=== PATIENT | female | born 1955 | race Two or more races ===

== ENCOUNTER 2020-04-10 23:31 | Emergency (ER) | payer MEDICARE ==
[~2020-04-10] VITALS: Ht 152.4 cm; Wt 77.3 kg
[2020-04-11 01:46] LABS: BASO # 0.1 x10^3/uL (0.0-0.2); BASO % 1 % (0-3); EOS % 0 % (0-3); HEMATOCRIT 21.9 % (36.0-47.0); LYMPH # 0.8 x10^3/uL (1.0-4.8); LYMPH % 6 % (24-48); MEAN CORPUSCULAR HEMOGLOBIN 30 pg (25-35); MEAN CORPUSCULAR HGB CONC 31 g/dL (31-37); MEAN CORPUSCULAR VOLUME 97 fL (79-100); MONO # 0.7 x10^3/uL (0.0-1.1); MONO % 6 % (0-9); NEUT # 11.2 x10^3uL (1.8-7.7); NEUT % 88 % (31-73); PLATELET COUNT 322 x10^3/uL (140-400); RED BLOOD COUNT 2.26 x10^6/uL (3.50-5.40); RED CELL DISTRIBUTION WIDTH 30.7 % (11.5-14.5); WHITE BLOOD COUNT 12.7 x10^3/uL (4.0-11.0)
[2020-04-11 01:49] LABS: CALCIUM 8.3 mg/dL (8.5-10.1); CREATININE 0.8 mg/dL (0.6-1.0); GFR 71.8; POTASSIUM 3.7 mmol/L (3.5-5.1)
[2020-04-11 01:54] LABS: HEMOGLOBIN 6.7 g/dL (12.0-15.5)
[2020-04-11 01:55] LABS: ALBUMIN 2.8 g/dL (3.4-5.0); ALBUMIN/GLOBULIN RATIO 0.8 (1.0-1.7); TOTAL BILIRUBIN 0.1 mg/dL (0.2-1.0); TOTAL PROTEIN 6.5 g/dL (6.4-8.2)
[2020-04-11 02:03] LABS: ANISOCYTOSIS MARKED; MICROCYTOSIS SLIGHT; PLT ESTIMATE ADEQUATE (ADEQUATE)
[2020-04-11] MEDS ORDERED: ALBUTEROL SULFATE 8GM INHALER. INH SCH (03:15)
--- NOTE | 2020-04-11 03:15 | PHYS DOC ---
Past History Past Medical History: Anemia, Anxiety, Constipation, Depression, GERD, High Cholesterol, P.U.D, Other Additional Past Medical Histor: dysphagia,diaphrag hernia,diverticulosis, phlebitis Alcohol Use: None Adult General Chief Complaint Chief Complaint: NAUSEA/VOMITING/[facility] HPI Patient is 65-year-old female who presents to the emergency room after vomiting blood. Patient had an episode of hematemesis last Wednesday and went to [facility] for this. She was admitted and had an EGD done where she had cauterization of 4 ulcers. She is a Sabianist and did not receive blood due to this. She did receive iron and her hemoglobin improved and she was able to go home on Wednesday. She has been doing well since then. Today she got out of bed because she felt like she needed to use the bathroom. She does have a bowel movement but is unsure what color it was. She had been vomited a large amount of bright red clotted blood. She denies any further vomiting. She is feeling weak and dizzy. Review of Systems Review of Systems Complete ROS is negative unless otherwise documented in HPI Current Medications Current Medications Current Medications Medications (Trade) Dose Ordered Sig/Jose Start Time Stop Time Status Last Admin Dose Admin Albuterol Sulfate (Ventolin Hfa Inhaler) 2 puff QIDPRN 04/11/20 03:15 UNV Allergies Allergies Allergies Coded Allergies Type Severity Reaction Last Updated Verified codeine Adverse Reaction Intermediate nausea-severe 04/11/20 Yes Physical Exam Physical Exam General: Awake, alert, NAD. Well Nourished, well hydrated. Cooperative HEENT: Atraumatic, EOMI, PERRL, airway patent, moist oral mucosa Neck: Supple, trachea midline Respiratory: CTA bilaterally, normal effort, no wheezing/crackles CV: RRR, no murmur, cap refill <2 GI: Soft, nondistended, nontender, no masses MSK: No obvious deformities Skin: Warm, dry, intact Neuro: A&O x3, speech NL, sensory and motor grossly intact, no focal deficits Psych: Normal affect, normal mood, not suicidal or homicidal Current Patient Data Vital Signs Vital Signs Date Time Temp Pulse Resp B/P (MAP) Pulse Ox O2 Delivery O2 Flow Rate FiO2 04/11/20 02:20 91 20 114/57 (76) 98 Room Air 04/10/20 23:40 98.3 Lab Results Laboratory Tests Test 04/11/20 01:00 White Blood Count 12.7 x10^3/uL (4.0-11.0) H Red Blood Count 2.26 x10^6/uL (3.50-5.40) L Hemoglobin 6.7 g/dL (12.0-15.5) *L Hematocrit 21.9 % (36.0-47.0) L Mean Corpuscular Volume 97 fL (79-100) Mean Corpuscular Hemoglobin 30 pg (25-35) Mean Corpuscular Hemoglobin Concent 31 g/dL (31-37) Red Cell Distribution Width 30.7 % (11.5-14.5) H Platelet Count 322 x10^3/uL (140-400) Neutrophils (%) (Auto) 88 % (31-73) H Lymphocytes (%) (Auto) 6 % (24-48) L Monocytes (%) (Auto) 6 % (0-9) Eosinophils (%) (Auto) 0 % (0-3) Basophils (%) (Auto) 1 % (0-3) Neutrophils # (Auto) 11.2 x10^3uL (1.8-7.7) H Lymphocytes # (Auto) 0.8 x10^3/uL (1.0-4.8) L Monocytes # (Auto) 0.7 x10^3/uL (0.0-1.1) Eosinophils # (Auto) 0.0 x10^3/uL (0.0-0.7) Basophils # (Auto) 0.1 x10^3/uL (0.0-0.2) Platelet Estimate Adequate (ADEQUATE) Anisocytosis Marked Microcytosis Slight Macrocytosis Slight Prothrombin Time 10.8 SEC (9.4-11.4) Prothrombin Time INR 1.0 (0.9-1.1) Activated Partial Thromboplast Time 24 SEC (23-33) Sodium Level 137 mmol/L (136-145) Potassium Level 3.7 mmol/L (3.5-5.1) Chloride Level 103 mmol/L (98-107) Carbon Dioxide Level 25 mmol/L (21-32) Anion Gap 9 (6-14) Blood Urea Nitrogen 21 mg/dL (7-20) H Creatinine 0.8 mg/dL (0.6-1.0) Estimated GFR (Cockcroft-Gault) 71.8 BUN/Creatinine Ratio 26 (6-20) H Glucose Level 133 mg/dL (70-99) H Calcium Level 8.3 mg/dL (8.5-10.1) L Total Bilirubin 0.1 mg/dL (0.2-1.0) L Aspartate Amino Transferase (AST) 30 U/L (15-37) Alanine Aminotransferase (ALT) 41 U/L (14-59) Alkaline Phosphatase 75 U/L (46-116) Total Protein 6.5 g/dL (6.4-8.2) Albumin 2.8 g/dL (3.4-5.0) L Albumin/Globulin Ratio 0.8 (1.0-1.7) L Lipase 91 U/L (73-393) EKG EKG [] Radiology/Procedures Radiology/Procedures [] Heart Score Risk Factors: Risk Factors: DM, Current or recent (<one month) smoker, HTN, HLP, family history of CAD, obesity. Risk Scores: Risk Factors: DM, Current or recent (<one month) smoker, HTN, HLP, family history of CAD, obesity. Course & Med Decision Making Course & Med Decision Making Pertinent Labs and Imaging studies reviewed. (See chart for details) Patient is a 65-year-old female with a history of gastric ulcers who presents to the emergency room complaining of hematemesis. Patient's presentation is concerning for GI bleed. Upon arrival to the emergency room patient's vitals are stable and massive transfusion was not set off as patient is stable. CBC, CMP, lactate, CT abdomen and pelvis were ordered to evaluate for GI bleed. P atient was started on fluids. Initial hemoglobin was 6.7. Patient does not want blood is she is a Sabianist. We have discussed the risks and benefits of this. I have discussed the case with [facility] who will accept her as a transfer for GI specialist care. Dragon Disclaimer Dragon Disclaimer This electronic medical record was generated, in whole or in part, using a voice recognition dictation system. Departure Departure: Impression: Primary Impression: GI bleed Disposition: 02 DC/TRF OTHER SHORT TERM HOS Condition: STABLE Referrals: JENNIFER PETERSON MD (PCP) MARLEN YOUSSEF MD Apr 11, 2020 03:15
[2020-04-11 04:41] VITALS: BP 111/58
== END 2020-04-11 05:11 | disposition short-term general hospital (02) ==
LOC: ER 23:31
DX: K92.2 Gastrointestinal hemorrhage, unspecified (principal); F41.9 Anxiety disorder, unspecified; K21.9 Gastro-esophageal reflux disease without esophagitis; E78.00 Pure hypercholesterolemia, unspecified; Z87.11 Personal history of peptic ulcer disease; Z86.2 Personal history of diseases of the blood and blood-forming organs and certain disorders involving the immune mechanism; Z88.5 Allergy status to narcotic agent
CPT/HCPCS: 36415; 80053; 83690; 85025; 85610; 85730; 99285